=== PATIENT | male | born 1980 ===

== ENCOUNTER 2017-04-30 15:55 | Emergency (ER) | payer OTHER ==
[2017-04-30 16:08] VITALS: BP 138/65; PULSE 90; RESP 18; TEMP 98.2; O2SAT 99
[2017-04-30] MEDS ORDERED: Oxycodone/Acetaminophen 5/325 mg Tab PO STA (16:11)
[2017-04-30] MEDS ORDERED: Oxycodone/Acetaminophen 5/325 mg Tab ONE (16:12)
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
== END 2017-04-30 17:29 | disposition home or self-care (01) ==
LOC: H.ER 15:55
DX: S49.92XA Unspecified injury of left shoulder and upper arm, initial encounter (principal); S89.92XA Unspecified injury of left lower leg, initial encounter; V13.0XXA Pedal cycle driver injured in collision with car, pick-up truck or van in nontraffic accident, initial encounter; Y93.55 Activity, bike riding; Y99.9 Unspecified external cause status